=== PATIENT | female | born 1980 | race Caucasian/White ===

== ENCOUNTER 2018-04-27 19:49 | Emergency (ER) | payer OTHER ==
[~2018-04-27] VITALS: Ht 172.7 cm; Wt 95.5 kg
[2018-04-27 20:02] VITALS: Ht 172.7 cm; Wt 95.5 kg
[2018-04-27] MEDS ORDERED: SYNTHROID25 MCG PO (20:03)
[2018-04-27] MEDS ORDERED: ALDACTONE50 MG (20:03)
[2018-04-27] MEDS ORDERED: COZAAR50 MG (20:03)
[2018-04-27] MEDS ORDERED: ADIPEX-P37.5 M1 PO (20:04)
[2018-04-27 20:24] LABS: BASOPHILS 0.6 % (0-2); EOSINOPHILS 1.3 % (0-7); HEMOGLOBIN 13.9 g/dL (12-16); IMMATURE GRANULOCYTES 0.2 % (0-5); LYMPHOCYTES 39.9 % (15-50); MCH 31.3 pg (26.0-34.0); MCHC 33.9 g/dL (31.0-37.0); MCV 92.3 fL (80.0-100.0); MEAN PLATELET VOLUME 9.9 fL (7.4-10.4); PLATELET COUNT 296 10x3/uL (130-400); RBC 4.44 10x6/uL (4.00-5.40); RDW 12.3 % (11.5-14.5); WBC 8.9 10x3/uL (4.8-10.8)
[2018-04-27 20:27] LABS: INR 0.99 (0.85-1.17); PROTIME 12.6 SECONDS (11.6-15.0)
[2018-04-27 20:56] LABS: ALBUMIN 3.8 g/dL (3.4-5.0); ALKALINE PHOSPHATASE 84 U/L (46-116); BILIRUBIN - TOTAL 0.43 mg/dL (0.2-1.3); CALC OSMOLALITY 275 mosm/kg (275-300); CALCIUM 8.3 mg/dL (8.5-10.1); CHLORIDE - SERUM 102 mmol/L (98-107); CKMB 0.8 U/L (0.0-3.6); CREATINE KINASE 171 UL (21-215); CREATININE - SERUM 0.9 mg/dL (0.6-1.3); GLUCOSE 121 mg/dL (74-106); POTASSIUM - SERUM 4.6 mmol/L (3.5-5.1); SODIUM 138 mmol/L (136-145); UREA NITROGEN 10 mg/dL (7-18); eGFR NON AFRICAN AMERICAN 73 mL/min (90-120)
[2018-04-27 20:57] LABS: ALT (SGPT) 26 U/L (10-68); PROTEIN - SERUM 7.4 g/dL (6.4-8.2); TROPONIN-I < 0.017 ng/mL (0.000-0.060)
[2018-04-27 21:15] LABS: THYROID STIMULATING HORMONE 2.94 uIU/mL (0.36-3.74)
[2018-04-27 21:43] LABS: APPEARANCE SL CLDY (CLEAR); COLOR STRAW (YELLOW); NITRITE NEGATIVE (NEGATIVE); PROTEIN NEGATIVE (NEGATIVE); SPECIFIC GRAVITY 1.005 (1.005-1.020)
[2018-04-27 21:44] LABS: BILIRUBIN NEGATIVE (NEGATIVE); GLUCOSE 50 mg/dL (NEGATIVE); KETONE NEGATIVE (NEGATIVE); UROBILINOGEN NORMAL (NORMAL)
[2018-04-27] MEDS ORDERED: ZOFRAN4 MG PO (22:29)
[2018-04-27 22:58] VITALS: BP 145/90
== END 2018-04-27 22:58 | disposition home or self-care (01) ==
LOC: D.ER 19:49
PROVIDERS: Family Medicine
DX: R42 Dizziness and giddiness (principal); R11.0 Nausea; R20.2 Paresthesia of skin; M79.604 Pain in right leg; I10 Essential (primary) hypertension